=== PATIENT | male | born 1970 | race Asian ===

== ENCOUNTER 2021-01-25 17:10 | Outpatient (CLI) | payer OTHER | END 2021-01-25 17:11 | disposition home or self-care (01) | LOC: COV 17:10 | PROVIDERS: ATTEND Family Medicine | DX: R19.7 Diarrhea, unspecified (principal); Z20.822 Contact with and (suspected) exposure to COVID-19 ==

== ENCOUNTER 2021-04-16 13:14 | Day surgery (SDC) | payer OTHER ==
[2021-04-16] MEDS ORDERED: LACTATED RINGERS 1,000 ML IV ONE ×2 (14:02→15:23)
[2021-04-16] MEDS ORDERED: fentaNYL 250 MCG/5 ML VIAL ONE (14:31)
[2021-04-16] MEDS ORDERED: MIDAZOLAM 2 MG/2 ML VIAL ONE ×4 (14:31→14:57)
[2021-04-16 16:03] VITALS: BP 135/77
== END 2021-04-16 13:15 | disposition home or self-care (01) ==
LOC: SDS 13:14
PROVIDERS: ATTEND Surgery
PROC: 0DBL8ZZ Excision of Transverse Colon, Via Natural or Artificial Opening Endoscopic (ICD-10-PCS; principal; 2021-04-16 14:30)
DX: Z12.11 Encounter for screening for malignant neoplasm of colon (principal); D12.4 Benign neoplasm of descending colon; D12.3 Benign neoplasm of transverse colon; Z87.891 Personal history of nicotine dependence
CPT/HCPCS: 45380; 81599; J3010; J7120

== ENCOUNTER 2022-06-30 15:04 | Outpatient (CLI) | payer OTHER ==
[2022-06-30 15:45] VITALS: BP 180/90
--- NOTE | 2022-06-30 15:46 | SLEEP CARE CONSULTATION ---
Information from patient questionnaire entered by Donato Pride. I have reviewed and concur with the information entered by Donato Pride. This document represents the service I personally performed and the decisions made by me, Cecilia Brennan ARNP. History of Present Illness Service Date and Time: 06/30/2022 1504 Reason for Visit: New patient Chief Complaint: reports: Snoring, Observed pauses in breathing (twice) Date of Onset: MARCH 2021 Usual bedtime: 9-10PM Time it takes to fall asleep: I FALL ASLEEP EASILY Snores at night: Yes Observed to quit breathing while asleep: Yes (2X NOTICED) Sleeps alone due to snoring: No Number of times waking at night: 2-3 Reasons for waking at night: reports: Choking, Snoring, Bathroom Toss, Turn, or Twitch while sleeping: Yes Recalls having dreams: Yes Usually gets out of bed at: 420AM FOR WORK, 730-830AM IF NOT WORKING Feels refreshed in the morning: Yes Morning headache: No Sleepy or fatigued during the day: Yes (SOMETIMES, ESPECIALLY IF STAYED UP LATE AT NIGHT) Ever fallen asleep while driving: No Takes day naps: Yes (SOMETIMES AFTER GETTING OFF; 2-3 times a week, 10-15 minutes) Dreams during day naps: No Prior sleep studies: No Additional HPI information: I had the pleasure of seeing ROBERT REYES today regarding the possibility of him having a sleep disorder. His current complaint is snoring. 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 Patient is and lives in [place]. Have you smoked in the past 12 months: No Cigarettes per day (20/pack): 3 Years of smokin Quit date: 1994 Smoking Pack Years: 0.5 Alcohol use: Yes Alcohol amount and frequency: 2-3 TIMES PER MONTH Caffeine use: Yes Caffeine amount and frequency: 8OZ 2-3 TIMES PER WEEK Family History Family history of sleep disordered breathing: No ("I don't know") Allergies and Home Medications Known drug allergies: No Drug allergies reviewed: Yes (NKDA) Home medication list reviewed: Yes Allergy and home medication list: Allergies No Known Drug Allergies Allergy (Verified 04/16/21 13:36) Medications: Desonide cream 0.05% Review of Systems Weight gain over past 5 years: 10-15 Cardiovascular: reports: other (ELEVATED BP ) Gastrointestinal: reports: other (ACID REFLUX). denies: heartburn, difficulty swallowing Neurological: denies: headaches Psychiatric: denies: anxiety, depression Ear/Nose/Throat: reports: wisdom teeth removed. denies: tonsillectomy Musculoskeletal: reports: joint pain (KNEE PAIN ) Immunologic: reports: rash, allergies to food or environment (shrimp) Physical Exam Vital signs obtained and entered by: KIMBROUGH MA Blood Pressure: 180/90 (RIGHT ARM ; pt is nervous, has white coat at dr. office) Cuff size: regular Heart Rate: 84 O2 Saturation: 99 Height: 5 ft 5 in Weight: 186 lb Body Mass Index: 30.9 BMI Classification: Obese Neck circumference: 16.5 (INCHES) Mouth and throat: narrow oropharynx Soft palate: long Hard palate: normal Uvula: normal Uvula visualization: 25% Mallampati Class III Tongue: enlarged in size with teeth gage on lateral edges Tonsils: small Neck: normal w/o lymphadenopathy or thyromegaly Heart: regular rate and rhythm Lungs: clear bilaterally Impression and Plan 1. Suspected Obstructive Sleep Apnea-Hypopnea Syndrome, as suggested by a history of loud and irregular snoring, observed cessation of breath while asleep and gasping or choking in sleep. Narrow oropharynx and obesity are common predisposing factors for obstructive sleep apnea-hypopnea syndrome. I recommend proceeding to polysomnography to confirm the diagnosis and to assess severity. If the patient has significant sleep disordered breathing, a manual CPAP titration study will also be performed to find the optimal treatment pressure. I informed the patient of what the sleep studies involve and after some discussion, obtained agreement to proceed. The pathophysiology of obstructive sleep apnea-hypopnea syndrome was discussed with the patient and health risks of cardiovascular and cerebrovascular disease if not treated. Risks of drowsy driving discussed in detail and patient advised to avoid long distance driving and to pot puller at the first sign of drowsiness. Patient agreed to plan. 2. Elevated blood pressure reading in the office. Initially it was 180/90 and the 176/92 at the end of our visit. Patient informed me that he normally has an elevated BP when he is at a doctor's office. He does not have elevated readings at home. Patient denies shortness of breath, chest pain, headaches or dizziness. He was encouraged to monitor BP at home and follow up with PCP. He voiced understanding. * Schedule polysomnography * Avoid long distance driving or driving when feeling sleepy. * Avoid alcohol, sedative and muscle relaxant around bedtime. * Attempt to lose weight. * Review instructions provided by trained office staff on how to prepare for the sleep study. * Return for follow-up after sleep study completed. Counseling Topics: Weight loss health impact Visit Type: In Office Time Spent with Patient (minutes): 30 Provider Statement: I spent 100% of the Face to Face Visit with the patient with greater than 50% spent counseling the patient and coordination of care.
== END 2022-06-30 15:05 | disposition home or self-care (01) ==
LOC: SC 15:04
PROVIDERS: ATTEND Nurse Practitioner Family
DX: R06.83 Snoring (principal); R06.81 Apnea, not elsewhere classified; G47.8 Other sleep disorders; I10 Essential (primary) hypertension; E66.9 Obesity, unspecified; Z68.30 Body mass index [BMI] 30.0-30.9, adult; Z87.891 Personal history of nicotine dependence
CPT/HCPCS: 99203; 99212